=== PATIENT | female | born 1990 | race Caucasian/White ===

== ENCOUNTER → 2019-03-03 | Outpatient (CLI) | payer OTHER | LOC: RAD 09:01 | DX: Z85.820 Personal history of malignant melanoma of skin (principal) ==

== ENCOUNTER → 2019-08-20 | Outpatient (CLI) | payer OTHER | LOC: RAD 16:14 | DX: Z08 Encounter for follow-up examination after completed treatment for malignant neoplasm (principal); D22.22 Melanocytic nevi of left ear and external auricular canal; D22.39 Melanocytic nevi of other parts of face; D22.5 Melanocytic nevi of trunk; D22.71 Melanocytic nevi of right lower limb, including hip; D22.72 Melanocytic nevi of left lower limb, including hip; L82.1 Other seborrheic keratosis; L81.4 Other melanin hyperpigmentation; Z85.820 Personal history of malignant melanoma of skin ==